=== PATIENT | female | born 1965 | race Caucasian/White ===

== ENCOUNTER 2021-12-25 10:39 | Inpatient (IN) ==
[2021-12-25] MEDS ORDERED: CeFAZolin Syr 2,000MG/20 ML 2,000 MG/20 ML SYRINGE IVPB ONE (11:09)
[2021-12-25] MEDS ORDERED: Ringers Solution, Lactated 1,000 ML IVC SCH (11:15)
[2021-12-25] MEDS ORDERED: Ondansetron 4 MG/2 ML VIAL IVP PRN (11:50)
[2021-12-25] MEDS ORDERED: *HR* OxyCODONE Immed Rel 5 MG TABLET PO PRN (11:50)
[2021-12-25] MEDS ORDERED: Ropivacaine/PF 0.5% 30 ML VIAL ONE (11:53)
[2021-12-25] MEDS ORDERED: Vancomycin 1,500 MG/265 ML IV.SOLN IVPB ONE (12:00)
[2021-12-25] MEDS ORDERED: Vancomycin 1,000 MG, Sodium Chloride IRRigation 1,000 ML IR ONE (12:15)
[2021-12-25] MEDS ORDERED: Lidocaine HCL 4 ML Topical Solution (Laryng-O-Jet Kit Sterile Pak) TP ONE (12:54)
[2021-12-25] MEDS ORDERED: *HR* HYDROMORPHONE 2 MG/ML VIAL ONE (13:46)
[2021-12-25] MEDS ORDERED: Sugammadex Sodium 200 MG/2 ML VIAL IV ONE (14:32)
[2021-12-25] MEDS: *HR* HYDROmorphone PF 0.5 MG/0.5 ML SYRINGE IVP PRN ×4 (14:59→15:46)
[2021-12-25] MEDS ORDERED: 0.9 % Sodium Chloride 1,000 ML IVC SCH (16:45)
[2021-12-25] MEDS ORDERED: *HR* Labetalol 20 MG/4 ML SYRINGE IVP PRN (16:45)
[2021-12-25] MEDS ORDERED: *HR* OxyCODONE/APAP 7.5/325 TABLET PO PRN (16:45)
[2021-12-25] MEDS ORDERED: Naloxone 0.4 MG/ML INJ IVP PRN (16:45)
[2021-12-25] MEDS ORDERED: *HR* OxyCODONE/APAP 5/325 TABLET PO PRN (16:45)
[2021-12-25] MEDS: ALPRAZolam 1 MG TABLET PO SCH ×2 (17:20→21:04)
[2021-12-25] MEDS: *HR* Metoprolol 5 MG/5 ML VIAL IVP SCH ×2 (17:25→23:18)
[2021-12-25] MEDS: *HR* OxyCODONE/APAP 10/325 TABLET PO PRN ×2 (17:25→21:28)
[2021-12-25] MEDS ORDERED: Dextrose Gel 15 GM/37.5 ML TUBE PO PRN ×2 (20:10)
[2021-12-25] MEDS ORDERED: *HR* Dextrose 50 % in Water (Syg) 50 ML SYRINGE IVP PRN (20:10)
[2021-12-25] MEDS ORDERED: D5% in Water 1,000 ML IVC PRN (20:10)
[2021-12-25] MEDS: Insulin LISPRO 300 UNITS/3 ML VIAL SUBQ SCH ×2 (20:53→21:03)
[2021-12-25] MEDS: *HR* Metformin 500 MG TABLET PO SCH (21:03)
[2021-12-25] MEDS: CeFAZolin 2 GM/120 ML BAG IVPB SCH (21:03)
[2021-12-26] MEDS ORDERED: Vancomycin 1,500 MG/265 ML IV.SOLN IVPB ONE (01:00)
[2021-12-26] MEDS: *HR* OxyCODONE/APAP 10/325 TABLET PO PRN ×5 (02:33→22:49)
[2021-12-26 05:22] LABS: Basophils % 0.1 %; Eosinophils % 0.1 %; Hemoglobin 8.2 g/dL (11.5-15.4); Immature Granulocytes % 0.5 % (0-4); Lymphocytes # 1.5 K/mcL (0.6-4.6); Lymphocytes % 10.9 %; Mean Corpuscular HGB Conc 32.8 g/dL (31.6-35.5); Mean Corpuscular Hemoglobin 28.8 pg (28.0-33.3); Mean Corpuscular Volume 87.7 fL (83.0-100.0); Mean Platelet Volume 9.2 fL (9.4-12.4); Monocytes # 0.9 K/mcL (0.0-1.3); Monocytes % 6.6 %; Neutrophils # 11.1 K/mcL (1.6-8.9); Platelet Count 296 K/mcL (140-400); Red Blood Count 2.85 M/mcL (3.82-4.97); Red Cell Distribution Width 17.2 % (11.5-14.5); Segmented Neutrophils % 81.8 %; White Blood Count 13.6 K/mcL (4.3-11.1)
[2021-12-26 05:29] LABS: BUN/Creatinine Ratio 15 (6-26); Blood Urea Nitrogen 12 mg/dL (6-20); Calcium 8.6 mg/dL (8.6-10.3); Carbon Dioxide 26 mEq/L (23-29); Chloride 100 mEq/L (98-107); Glucose 193 mg/dL (70-105); Osmolality,Calculated 281 (280-300); Potassium 3.8 mEq/L (3.5-5.1); Sodium 133 mEq/L (136-145); eGFR For African Americans > 60 (> 60); eGFR For Non-African Americans > 60 (> 60)
[2021-12-26] MEDS: CeFAZolin 2 GM/120 ML BAG IVPB SCH (05:40)
[2021-12-26] MEDS ORDERED: *HR* Heparin 5,000 UNIT/ML VIAL SQ SCH (06:00)
[2021-12-26] MEDS: *HR* Metoprolol 5 MG/5 ML VIAL IVP SCH ×3 (06:47→18:17)
[2021-12-26] MEDS: Furosemide 40 MG TABLET PO SCH (08:47)
[2021-12-26] MEDS: ALPRAZolam 1 MG TABLET PO SCH ×3 (08:47→20:56)
[2021-12-26] MEDS: *HR* Metformin 500 MG TABLET PO SCH ×2 (08:48→20:56)
[2021-12-26] MEDS: Insulin LISPRO 300 UNITS/3 ML VIAL SUBQ SCH ×4 (08:48→20:52)
[2021-12-26] MEDS ORDERED: NON-FORMULARY MEDICATION 1 EACH EACH (Lisinopril [Zestril] 40 MG Tablet) PO SCH (09:00)
[2021-12-26] MEDS ORDERED: Ketorolac 30 MG/ML VIAL IVP ONE (16:14)
[2021-12-26] MEDS ORDERED: *HR* OxyCODONE/APAP 7.5/325 TABLET PO PRN (19:13)
[2021-12-26] MEDS ORDERED: *HR* OxyCODONE/APAP 5/325 TABLET PO PRN (19:13)
[2021-12-26] MEDS: Ketorolac 30 MG/ML VIAL IVP SCH (20:57)
[2021-12-27] MEDS: *HR* Metoprolol 5 MG/5 ML VIAL IVP SCH ×5 (00:10→21:15)
[2021-12-27] MEDS: Ketorolac 30 MG/ML VIAL IVP SCH ×4 (04:40→21:13)
[2021-12-27 05:42] LABS: Basophils # 0.1 K/mcL (0.0-0.2); Basophils % 0.5 %; Eosinophils % 0.4 %; Hematocrit 24.3 % (35.3-44.9); Hemoglobin 7.9 g/dL (11.5-15.4); Immature Granulocytes % 0.7 % (0-4); Lymphocytes # 2.4 K/mcL (0.6-4.6); Mean Corpuscular HGB Conc 32.5 g/dL (31.6-35.5); Mean Corpuscular Hemoglobin 28.9 pg (28.0-33.3); Mean Platelet Volume 9.8 fL (9.4-12.4); Monocytes # 0.6 K/mcL (0.0-1.3); Monocytes % 6.3 %; Neutrophils # 7.1 K/mcL (1.6-8.9); Platelet Count 297 K/mcL (140-400); Red Blood Count 2.73 M/mcL (3.82-4.97); Red Cell Distribution Width 17.2 % (11.5-14.5); Segmented Neutrophils % 69.1 %; White Blood Count 10.2 K/mcL (4.3-11.1)
[2021-12-27 06:04] LABS: Calcium 8.7 mg/dL (8.6-10.3); Potassium 3.8 mEq/L (3.5-5.1)
[2021-12-27] MEDS: *HR* OxyCODONE/APAP 10/325 TABLET PO PRN ×2 (08:45→15:12)
[2021-12-27] MEDS: *HR* Metformin 500 MG TABLET PO SCH ×2 (08:46→21:14)
[2021-12-27] MEDS: Furosemide 40 MG TABLET PO SCH (08:46)
[2021-12-27] MEDS: ALPRAZolam 1 MG TABLET PO SCH ×3 (08:46→21:14)
[2021-12-27] MEDS: Insulin LISPRO 300 UNITS/3 ML VIAL SUBQ SCH ×4 (08:47→21:16)
[2021-12-28] MEDS: Ketorolac 30 MG/ML VIAL IVP SCH ×2 (04:10→09:37)
[2021-12-28] MEDS: *HR* Metoprolol 5 MG/5 ML VIAL IVP SCH ×3 (04:11→17:54)
[2021-12-28] MEDS: *HR* Metformin 500 MG TABLET PO SCH (09:34)
[2021-12-28] MEDS: Furosemide 40 MG TABLET PO SCH (09:34)
[2021-12-28] MEDS: ALPRAZolam 1 MG TABLET PO SCH ×3 (09:34→19:54)
[2021-12-28] MEDS: Insulin LISPRO 300 UNITS/3 ML VIAL SUBQ SCH ×4 (09:36→21:00)
[2021-12-28] MEDS: *HR* OxyCODONE/APAP 10/325 TABLET PO PRN ×2 (13:31→19:51)
[2021-12-28] MEDS ORDERED: 0.9 % Sodium Chloride 500 ML IVC ONE (14:11)
[2021-12-28] MEDS: 0.9 % Sodium Chloride 1,000 ML IVC SCH (15:36)
[2021-12-29] MEDS: *HR* OxyCODONE/APAP 10/325 TABLET PO PRN ×3 (02:26→16:32)
[2021-12-29 02:35] LABS: Calcium 7.8 mg/dL (8.6-10.3); Potassium 3.9 mEq/L (3.5-5.1)
[2021-12-29] MEDS: *HR* Metoprolol 5 MG/5 ML VIAL IVP SCH ×5 (04:41→23:27)
[2021-12-29] MEDS: 0.9 % Sodium Chloride 1,000 ML IVC SCH ×2 (04:45→10:10)
[2021-12-29 08:51] LABS: Basophils # 0.1 K/mcL (0.0-0.2); Basophils % 0.9 %; Eosinophils # 0.1 K/mcL (0.0-0.6); Eosinophils % 1.8 %; Hematocrit 24.4 % (35.3-44.9); Hemoglobin 7.9 g/dL (11.5-15.4); Immature Granulocytes % 1.4 % (0-4); Lymphocytes # 1.4 K/mcL (0.6-4.6); Lymphocytes % 17.2 %; Mean Corpuscular HGB Conc 32.4 g/dL (31.6-35.5); Mean Corpuscular Hemoglobin 28.7 pg (28.0-33.3); Mean Corpuscular Volume 88.7 fL (83.0-100.0); Mean Platelet Volume 9.4 fL (9.4-12.4); Monocytes # 0.5 K/mcL (0.0-1.3); Monocytes % 6.3 %; Neutrophils # 5.7 K/mcL (1.6-8.9); Platelet Count 355 K/mcL (140-400); Red Blood Count 2.75 M/mcL (3.82-4.97); Red Cell Distribution Width 17.2 % (11.5-14.5); Segmented Neutrophils % 72.4 %; White Blood Count 7.9 K/mcL (4.3-11.1)
[2021-12-29 09:07] LABS: Albumin 2.9 g/dL (3.5-5.7); Phosphorous 5.3 mg/dL (2.7-4.5); Potassium 3.9 mEq/L (3.5-5.1)
[2021-12-29] MEDS: ALPRAZolam 1 MG TABLET PO SCH ×3 (10:02→20:55)
[2021-12-29 10:44] LABS: % Iron Saturation 6 % (15-50); Iron 20 mcg/dL (50-170); Transferrin 220 mg/dL (203-362)
[2021-12-29 11:02] LABS: Ferritin 88 ng/mL (10-120)
[2021-12-29 11:09] LABS: Folate 2.8 ng/mL (3.0-16.0)
[2021-12-29] MEDS ORDERED: 0.9 % Sodium Chloride 1,000 ML IVC ONE (12:04)
[2021-12-29] MEDS ORDERED: Cyanocobalamin (B-12) 1,000 MCG/ML VIAL IM ONE (12:04)
[2021-12-29] MEDS: Insulin LISPRO 300 UNITS/3 ML VIAL SUBQ SCH ×3 (13:02→20:58)
[2021-12-29] MEDS: Folic Acid 1 MG TABLET PO SCH (15:23)
[2021-12-29] MEDS: *HR* Heparin 5,000 UNIT/ML VIAL SQ SCH (17:44)
[2021-12-29] MEDS: *HR* OxyCODONE Immed Rel 5 MG TABLET PO PRN (20:54)
[2021-12-30] MEDS: 0.9 % Sodium Chloride 1,000 ML IVC SCH ×3 (02:01→18:05)
[2021-12-30 02:24] LABS: Sodium, Urine 32.6 mEq/L
[2021-12-30 02:30] LABS: Bilirubin,Urine Negative (Negative); Blood,Urine Negative (Negative); Clarity,Urine Turbid (Clear); Color,Urine Light-Yellow (Yellow); Glucose,Urine (UA) Normal (Normal); Ketones,Urine Negative (Negative); Leukocyte Esterase,Urine Moderate (Negative); Mucus,Urine Few per lpf (None-Few); Nitrite,Urine Negative (Negative); PH,Urine 5.5 pH Units (5.0-8.0); Protein,Urine 30 mg/dL (Neg-Trace); RBC,Urine 0-3 per hpf (0-3); Specific Gravity,Urine 1.009 (1.010-1.025); Squamous Epithelial Cell,Urine Few per hpf (None-Few); Urobilinogen,Urine Normal (Normal)
[2021-12-30 02:50] LABS: Basophils # 0.1 K/mcL (0.0-0.2); Basophils % 0.7 %; Eosinophils # 0.2 K/mcL (0.0-0.6); Eosinophils % 2.4 %; Hematocrit 21.6 % (35.3-44.9); Hemoglobin 7.1 g/dL (11.5-15.4); Immature Granulocytes % 1.1 % (0-4); Lymphocytes # 1.4 K/mcL (0.6-4.6); Mean Corpuscular HGB Conc 32.9 g/dL (31.6-35.5); Mean Corpuscular Hemoglobin 29.1 pg (28.0-33.3); Mean Corpuscular Volume 88.5 fL (83.0-100.0); Mean Platelet Volume 9.1 fL (9.4-12.4); Monocytes # 0.5 K/mcL (0.0-1.3); Monocytes % 7.2 %; Neutrophils # 4.9 K/mcL (1.6-8.9); Platelet Count 345 K/mcL (140-400); Red Blood Count 2.44 M/mcL (3.82-4.97); Red Cell Distribution Width 17.2 % (11.5-14.5); Segmented Neutrophils % 68.6 %; White Blood Count 7.1 K/mcL (4.3-11.1)
[2021-12-30 03:04] LABS: Complement C3 133 mg/dL (87-200)
[2021-12-30 03:05] LABS: Albumin 2.7 g/dL (3.5-5.7); Calcium 7.6 mg/dL (8.6-10.3); Calcium 7.8 mg/dL (8.6-10.3); Phosphorous 4.8 mg/dL (2.7-4.5); Potassium 3.9 mEq/L (3.5-5.1)
[2021-12-30] MEDS: *HR* Metoprolol 5 MG/5 ML VIAL IVP SCH ×4 (04:00→23:39)
[2021-12-30] MEDS: *HR* OxyCODONE Immed Rel 5 MG TABLET PO PRN ×3 (05:03→20:19)
[2021-12-30] MEDS: *HR* Heparin 5,000 UNIT/ML VIAL SQ SCH ×2 (05:06→18:08)
[2021-12-30] MEDS: Folic Acid 1 MG TABLET PO SCH (08:22)
[2021-12-30] MEDS: ALPRAZolam 1 MG TABLET PO SCH ×3 (09:00→20:20)
[2021-12-30] MEDS: Insulin LISPRO 300 UNITS/3 ML VIAL SUBQ SCH ×4 (09:25→20:19)
[2021-12-30] MEDS ORDERED: 0.9 % Sodium Chloride 250 ML ONE (15:14)
[2021-12-30 19:50] LABS: Hematocrit 26.8 % (35.3-44.9); Hemoglobin 8.8 g/dL (11.5-15.4)
[2021-12-31] MEDS: *HR* OxyCODONE Immed Rel 5 MG TABLET PO PRN ×4 (02:19→21:37)
[2021-12-31 03:03] LABS: Albumin 2.7 g/dL (3.5-5.7); Calcium 8.4 mg/dL (8.6-10.3); Potassium 4.1 mEq/L (3.5-5.1)
[2021-12-31] MEDS: 0.9 % Sodium Chloride 1,000 ML IVC SCH ×2 (05:11→15:27)
[2021-12-31] MEDS: *HR* Heparin 5,000 UNIT/ML VIAL SQ SCH ×2 (06:10→17:24)
[2021-12-31] MEDS: *HR* Metoprolol 5 MG/5 ML VIAL IVP SCH ×4 (06:10→23:39)
[2021-12-31] MEDS: Folic Acid 1 MG TABLET PO SCH (08:31)
[2021-12-31] MEDS: ALPRAZolam 1 MG TABLET PO SCH ×3 (08:31→21:39)
[2021-12-31] MEDS: Insulin LISPRO 300 UNITS/3 ML VIAL SUBQ SCH ×4 (08:34→21:00)
[2021-12-31 15:05] LABS: Kappa Qnt Free Light Chains 97.36 mg/L (3.30-19.40); Lambda Qnt Free Light Chains 52.97 mg/L (5.71-26.30)
[2022-01-01 02:08] LABS: Calcium 8.5 mg/dL (8.6-10.3); Phosphorous 3.9 mg/dL (2.7-4.5); Potassium 3.5 mEq/L (3.5-5.1)
[2022-01-01] MEDS: 0.9 % Sodium Chloride 1,000 ML IVC SCH (03:09)
[2022-01-01] MEDS: *HR* Metoprolol 5 MG/5 ML VIAL IVP SCH ×2 (05:00→11:20)
[2022-01-01] MEDS: *HR* Heparin 5,000 UNIT/ML VIAL SQ SCH (05:00)
[2022-01-01] MEDS: *HR* OxyCODONE Immed Rel 5 MG TABLET PO PRN ×2 (05:00→11:20)
[2022-01-01 06:56] VITALS: O2SAT 95
[2022-01-01] MEDS: Folic Acid 1 MG TABLET PO SCH (08:50)
[2022-01-01] MEDS: ALPRAZolam 1 MG TABLET PO SCH (08:50)
[2022-01-01] MEDS: Insulin LISPRO 300 UNITS/3 ML VIAL SUBQ SCH ×2 (08:51→11:49)
[2022-01-01 11:33] VITALS: BP 113/62; PULSE 66; TEMP 97.6
[2022-01-01 14:40] LABS: ANA IgG by ELISA NONE DETECTED (None Detected)
== END 2022-01-01 14:00 | disposition home health service (06) | DRG 239 ==
LOC: SAMDAY 10:39 → 3ANU 16:43
PROVIDERS: ADMIT Surgery; ATTEND Surgery